=== PATIENT | male | born 1940 | race Caucasian/White ===

== ENCOUNTER 2018-10-28 09:45 | Inpatient (IN) | payer MEDICARE ==
[~2018-10-28] VITALS: Ht 180.3 cm; Wt 101.7 kg
[2018-10-28] MEDS ORDERED: SODIUM CHLORIDE FLUSH 10ML SYR IVF ONE (11:00)
[2018-10-28 11:10] LABS: BASOPHILS # (AUTO) 0.02 x10^3/uL (0-0.1); BASOPHILS % (AUTO) 0 % (0-1); EOSINOPHILS # (AUTO) 0.36 x10^3/uL (0-0.4); EOSINOPHILS % (AUTO) 5 % (1-7); LYMPHOCYTES # (AUTO) 1.05 x10^3/uL (1-3.4); LYMPHOCYTES % (AUTO) 13 % (22-44); MD NO; MEAN CORPUSCULAR HEMOGLOBIN 32.3 pg (27.5-34.5); MEAN CORPUSCULAR HGB CONC 34.3 g/dL (33.2-36.2); MEAN CORPUSCULAR VOLUME 94.2 fL (81-97); MEAN PLATELET VOLUME 8.1 fL (7.4-10.4); MONOCYTES # (AUTO) 0.78 x10^3/uL (0.2-0.8); MONOCYTES % (AUTO) 10 % (2-9); NEUTROPHILS # (AUTO) 5.97 x10^3/uL (1.8-6.8); NEUTROPHILS % (AUTO) 73 % (42-75); PLATELET COUNT 285 x10^3/uL (130-400); RED BLOOD COUNT 4.64 x10^6/uL (4.38-5.82)
[2018-10-28 11:15] LABS: CHLORIDE 111 mmol/L (98-107)
[2018-10-28 11:16] LABS: ALANINE AMINOTRANSFERASE 29 U/L (12-78); ALBUMIN 3.3 g/dL (3.4-5.0); ANION GAP 6 mmol/L (5-15); CALCIUM 8.5 mg/dL (8.5-10.1); CREATININE 1.05 mg/dL (0.7-1.3)
[2018-10-28 11:18] LABS: ALKALINE PHOSPHATASE 67 U/L (45-117); BILIRUBIN,TOTAL 0.7 mg/dL (0.2-1.0); TOTAL PROTEIN 6.9 g/dL (6.4-8.2)
[2018-10-28] MEDS ORDERED: OMNIPAQUE 350 MG/ML, 100ML BOTTLE ONE (12:20)
[2018-10-28] MEDS ORDERED: VANCOMYCIN PER PHARMACY MC PRN (13:30)
[2018-10-28] MEDS ORDERED: BISACODYL 10 MG SUPP PR PRN (13:30)
[2018-10-28] MEDS ORDERED: DOCUSATE 100 MG CAPSULE PO PRN (13:30)
[2018-10-28] MEDS ORDERED: ONDANSETRON 2MG/ML, 2ML IVPush PRN (13:30)
[2018-10-28] MEDS ORDERED: hydrALAzine 20 MG/ML, 1ML IVPush PRN (13:30)
[2018-10-28] MEDS ORDERED: VANCOMYCIN PMX 1GM/200ML 200 ML IV ONE (13:30)
[2018-10-28] MEDS ORDERED: ONDANSETRON ODT 4 MG PO PRN (13:30)
[2018-10-28] MEDS ORDERED: PROMETHAZINE 25 MG/ML, 1ML IM PRN (13:30)
[2018-10-28] MEDS ORDERED: CYCLOBENZAPRINE 10 MG TABLET PO PRN (13:30)
[2018-10-28] MEDS ORDERED: LABETALOL 5MG/ML, 20ML IVPush PRN (13:30)
[2018-10-28] MEDS ORDERED: GABAPENTIN 300 MG CAPSULE PO PRN (13:30)
[2018-10-28] MEDS ORDERED: POLYETHYLENE GLYCOL 17 GM PACKET PO PRN (13:30)
[2018-10-28] MEDS ORDERED: morphine SULFATE 10 MG/ML, 1ML IVPush PRN (13:30)
[2018-10-28] MEDS ORDERED: GLIM2TAB2 PO (13:31)
[2018-10-28] MEDS ORDERED: LISI-170 PO (13:31)
[2018-10-28] MEDS ORDERED: SIMV40TA3 PO (13:31)
[2018-10-28] MEDS ORDERED: WARF-36 PO (13:31)
[2018-10-28] MEDS ORDERED: CARV6.252 PO (13:31)
[2018-10-28 14:03] LABS: HCT (SEDRATE) 45.4 % (39.2-51.8)
[2018-10-28] MEDS ORDERED: PIPERACILLIN/TAZO/PMX 3.375GM 50 ML ONE (14:04)
[2018-10-28] MEDS: SODIUM CHLORIDE 0.9% 1,000 ML IV SCH (14:12)
[2018-10-28] MEDS: PIPERACILLIN/TAZO/PMX 3.375GM 50 ML IV SCH ×2 (14:13→21:17)
[2018-10-28 14:23] LABS: C-REACTIVE PROTEIN, QUANT 3.8 mg/dL (0.02-0.49); FREE T4 (FREE THYROXINE) 1.18 ng/dL (0.76-1.46); THYROID STIMULATING HORMONE 1.63 mIU/L (0.358-3.740)
[2018-10-28 14:43] VITALS: BP 148/78
[2018-10-28 15:16] LABS: HEMOGLOBIN A1C 6.4 % (4.2-6.3)
[2018-10-28] MEDS ORDERED: PHARMACOKINETIC MONITORING MC PRN (15:30)
[2018-10-28] MEDS ORDERED: PHARMACOKINETIC CONSULTATION MC ONE (15:30)
[2018-10-28 15:35] LABS: MICROSCOPIC NOT IND
[2018-10-28] MEDS: VANCOMYCIN 1,700 MG in SODIUM CHLORIDE 0.9% 250 ML IV SCH (15:40)
[2018-10-28] MEDS: OXYcodone IR 5MG TABLET PO PRN ×2 (15:44→20:59)
[2018-10-28 15:54] LABS: CULTURE INDICATED? NO
[2018-10-28 19:32] VITALS: BP 124/75
[2018-10-28] MEDS: INSULIN LISPRO 100 UNITS/ML, PEN SQ-INSULIN SCH (20:42)
[2018-10-29] MEDS: OXYcodone IR 5MG TABLET PO PRN ×4 (01:43→20:48)
[2018-10-29] MEDS: SODIUM CHLORIDE 0.9% 1,000 ML IV SCH (01:44)
[2018-10-29 02:24] VITALS: BP 109/67
[2018-10-29] MEDS: PIPERACILLIN/TAZO/PMX 3.375GM 50 ML IV SCH ×4 (02:47→20:48)
[2018-10-29 05:16] LABS: BASOPHILS # (AUTO) 0.03 x10^3/uL (0-0.1); BASOPHILS % (AUTO) 1 % (0-1); EOSINOPHILS # (AUTO) 0.33 x10^3/uL (0-0.4); EOSINOPHILS % (AUTO) 5 % (1-7); LYMPHOCYTES # (AUTO) 0.92 x10^3/uL (1-3.4); LYMPHOCYTES % (AUTO) 13 % (22-44); MD NO; MEAN CORPUSCULAR HEMOGLOBIN 31.6 pg (27.5-34.5); MEAN CORPUSCULAR HGB CONC 33.4 g/dL (33.2-36.2); MEAN CORPUSCULAR VOLUME 94.7 fL (81-97); MEAN PLATELET VOLUME 7.9 fL (7.4-10.4); MONOCYTES # (AUTO) 0.69 x10^3/uL (0.2-0.8); MONOCYTES % (AUTO) 10 % (2-9); NEUTROPHILS # (AUTO) 5.12 x10^3/uL (1.8-6.8); NEUTROPHILS % (AUTO) 72 % (42-75); PLATELET COUNT 266 x10^3/uL (130-400); RED BLOOD COUNT 4.35 x10^6/uL (4.38-5.82)
[2018-10-29 05:25] LABS: INTERNATIONAL NORMALIZED RATIO 2.28 (0.93-1.1); PROTHROMBIN TIME 23.4 Seconds (9.6-11.5)
[2018-10-29 05:31] LABS: ALBUMIN 2.8 g/dL (3.4-5.0); ANION GAP 6 mmol/L (5-15); CALCIUM 7.6 mg/dL (8.5-10.1); CHLORIDE 109 mmol/L (98-107)
[2018-10-29 05:35] LABS: ALANINE AMINOTRANSFERASE 43 U/L (12-78); ALKALINE PHOSPHATASE 73 U/L (45-117); BILIRUBIN,TOTAL 1.2 mg/dL (0.2-1.0); CHOL/HDL RATIO 3.1; CHOLESTEROL, TOTAL 107 mg/dL (140-239); CREATININE 1.22 mg/dL (0.7-1.3); HDL CHOL % 32 % (26-37); HDL CHOLESTEROL (DIRECT) 34 mg/dL (40-60); LDL CHOLESTEROL,CALCULATED 48 mg/dL (54-169); LDL/HDL RATIO 1.4 (0.5-3.0); TRIGLYCERIDES 123 mg/dL (50-200); VLDL CHOLESTEROL 25 mg/dL (0-25)
[2018-10-29] MEDS: INSULIN LISPRO 100 UNITS/ML, PEN SQ-INSULIN SCH ×4 (07:00→20:47)
[2018-10-29 08:06] VITALS: BP 109/56
[2018-10-29] MEDS: ENOXAPARIN 100 MG/ML SQ SCH ×2 (11:10→23:16)
[2018-10-29 14:05] VITALS: BP 110/52
[2018-10-29] MEDS: VANCOMYCIN 1,700 MG in SODIUM CHLORIDE 0.9% 250 ML IV SCH (15:50)
[2018-10-29 18:57] VITALS: BP 114/66
[2018-10-29] MEDS: ACETAMINOPHEN 325 MG TABLET PO PRN (20:48)
[2018-10-30 02:02] VITALS: BP 119/62
[2018-10-30] MEDS: PIPERACILLIN/TAZO/PMX 3.375GM 50 ML IV SCH ×4 (02:33→20:39)
[2018-10-30 05:38] LABS: INTERNATIONAL NORMALIZED RATIO 2.04 (0.93-1.1)
[2018-10-30] MEDS: INSULIN LISPRO 100 UNITS/ML, PEN SQ-INSULIN SCH ×4 (06:25→21:00)
[2018-10-30] MEDS: OXYcodone IR 5MG TABLET PO PRN ×3 (06:25→19:45)
[2018-10-30] MEDS: ACETAMINOPHEN 325 MG TABLET PO PRN (06:25)
[2018-10-30 06:51] VITALS: BP 120/68
[2018-10-30] MEDS: ENOXAPARIN 100 MG/ML SQ SCH ×2 (11:38→23:02)
[2018-10-30 13:48] VITALS: BP_SYST 103; BP_SYST 126; BP_DIAS 62; BP_DIAS 72
[2018-10-30] MEDS: VANCOMYCIN 1,700 MG in SODIUM CHLORIDE 0.9% 250 ML IV SCH (16:15)
[2018-10-30 20:00] VITALS: BP 123/71
[2018-10-31] MEDS: OXYcodone IR 5MG TABLET PO PRN (00:29)
[2018-10-31 02:00] VITALS: BP 128/69
[2018-10-31] MEDS: PIPERACILLIN/TAZO/PMX 3.375GM 50 ML IV SCH ×2 (02:21→08:23)
[2018-10-31 06:12] LABS: INTERNATIONAL NORMALIZED RATIO 1.54 (0.93-1.1); PROTHROMBIN TIME 16.1 Seconds (9.6-11.5)
[2018-10-31] MEDS: INSULIN LISPRO 100 UNITS/ML, PEN SQ-INSULIN SCH ×2 (07:00→11:32)
[2018-10-31 09:29] VITALS: BP 121/70
[2018-10-31 10:21] LABS: BASOPHILS # (AUTO) 0.01 x10^3/uL (0-0.1); BASOPHILS % (AUTO) 0 % (0-1); EOSINOPHILS # (AUTO) 0.26 x10^3/uL (0-0.4); EOSINOPHILS % (AUTO) 4 % (1-7); LYMPHOCYTES # (AUTO) 0.95 x10^3/uL (1-3.4); LYMPHOCYTES % (AUTO) 15 % (22-44); MD NO; MEAN CORPUSCULAR HEMOGLOBIN 32.1 pg (27.5-34.5); MEAN CORPUSCULAR HGB CONC 33.9 g/dL (33.2-36.2); MEAN CORPUSCULAR VOLUME 94.8 fL (81-97); MEAN PLATELET VOLUME 8.1 fL (7.4-10.4); MONOCYTES # (AUTO) 0.56 x10^3/uL (0.2-0.8); MONOCYTES % (AUTO) 9 % (2-9); NEUTROPHILS # (AUTO) 4.56 x10^3/uL (1.8-6.8); NEUTROPHILS % (AUTO) 72 % (42-75); PLATELET COUNT 281 x10^3/uL (130-400); RED BLOOD COUNT 4.44 x10^6/uL (4.38-5.82); RED CELL DISTRIBUTION WIDTH 13.8 % (9.4-14.8)
[2018-10-31 10:24] LABS: ANION GAP 7 mmol/L (5-15); CALCIUM 8.1 mg/dL (8.5-10.1); CHLORIDE 111 mmol/L (98-107); CREATININE 1.22 mg/dL (0.7-1.3)
[2018-10-31] MEDS: ENOXAPARIN 100 MG/ML SQ SCH (12:30)
[2018-10-31] MEDS ORDERED: OXYC-302 PO (14:54)
[2018-10-31] MEDS ORDERED: AMOX1TAB64 PO (14:54)
[2018-10-31] MEDS ORDERED: DOXY100T10 PO (14:54)
[2018-10-31] MEDS ORDERED: CYCL-259 PO (14:54)
[2018-10-31] MEDS ORDERED: DOCU-131 PO (14:54)
[2018-10-31 15:09] VITALS: BP 153/69
== END 2018-10-31 15:45 | disposition home or self-care (01) | DRG 603 ==
LOC: ED 12:51 → EDIP 13:20 → 4NOR 14:35 → DCLOUNGE 10-31 15:30
PROVIDERS: ADMIT Internal Medicine; ATTEND Internal Medicine
DX: L02.416 Cutaneous abscess of left lower limb (principal); D68.59 Other primary thrombophilia; E44.0 Moderate protein-calorie malnutrition; E11.9 Type 2 diabetes mellitus without complications; I25.10 Atherosclerotic heart disease of native coronary artery without angina pectoris; I10 Essential (primary) hypertension; I25.2 Old myocardial infarction; Z79.01 Long term (current) use of anticoagulants; Z86.711 Personal history of pulmonary embolism; Z90.49 Acquired absence of other specified parts of digestive tract; Z87.891 Personal history of nicotine dependence; Z68.31 Body mass index [BMI] 31.0-31.9, adult
CPT/HCPCS: 36415; 80048; 80053; 80061; 81003; 82962; 83036; 83735; 84439; 84443; 85025; 85610; 85651; 86140; 87040; 99285; G0378; J1650; J2543; J3370; Q9967; J7030; J7050